=== PATIENT | male | born 1980 | race African-American/Black ===

== ENCOUNTER 2019-01-11 01:21 | Observation (INO) ==
[2019-01-11] MEDS ORDERED: Naloxone 0.4 MG/ML INJ IVP PRN (08:17)
[2019-01-11] MEDS ORDERED: Mag Hydrox/Al Hydrox/Simeth 30 ML UDC PO PRN (08:17)
[2019-01-11] MEDS ORDERED: Ondansetron ODT 4 MG TAB.RAPDIS SL PRN (08:17)
[2019-01-11] MEDS ORDERED: Acetaminophen 325 MG TABLET PO PRN (08:17)
[2019-01-11] MEDS ORDERED: MOM Conc 10 ML UD.LIQ PO PRN (08:17)
[2019-01-11] MEDS ORDERED: *HR* Heparin 5,000 UNIT/ML VIAL IVP PRN (08:21)
[2019-01-11] MEDS ORDERED: *HR* Buprenorphine HCl 8 MG TAB.SUBL SL SCH (09:00)
[2019-01-11] MEDS: Ringers Solution, Lactated 1,000 ML IVC SCH ×2 (09:08→14:14)
[2019-01-11 09:37] LABS: Hematocrit 51.6 % (37.5-50.1); Hemoglobin 17.9 g/dL (12.9-16.9); Mean Corpuscular HGB Conc 34.7 g/dL (31.6-35.5); Mean Corpuscular Hemoglobin 29.9 pg (28.0-33.3); Mean Corpuscular Volume 86.1 fL (83.0-100.0); Platelet Count 282 K/mcL (140-400); Red Blood Count 5.99 M/mcL (4.19-5.50); Red Cell Distribution Width 13.8 % (11.5-14.5); White Blood Count 17.8 K/mcL (4.3-11.1)
[2019-01-11 09:45] LABS: Prothrombin Time 11.3 Seconds (9.4-12.1)
[2019-01-11] MEDS: Heparin 25,000 UNIT/250 ML D5W 25,000 UNIT/250 ML IV.SOLN IVC SCH (10:01)
[2019-01-11] MEDS: *HR* Heparin 5,000 UNIT/ML VIAL IVP PRN (17:28)
[2019-01-11] MEDS ORDERED: Perflutren Lipid Microsphere 1.3 ML in 0.9 % Sodium Chloride 8.7 ML IVP ONE (18:00)
[2019-01-11] MEDS: *HR* Buprenorphine HCl 8 MG TAB.SUBL SL SCH (20:03)
[2019-01-12 01:44] LABS: Hematocrit 47.2 % (37.5-50.1); Mean Corpuscular HGB Conc 33.1 g/dL (31.6-35.5); Mean Corpuscular Hemoglobin 28.6 pg (28.0-33.3); Mean Corpuscular Volume 86.4 fL (83.0-100.0); Mean Platelet Volume 9.4 fL (9.4-12.4); Platelet Count 260 K/mcL (140-400); Red Blood Count 5.46 M/mcL (4.19-5.50); Red Cell Distribution Width 13.9 % (11.5-14.5); White Blood Count 16.1 K/mcL (4.3-11.1)
[2019-01-12 01:51] LABS: Hemoglobin 15.6 g/dL (12.9-16.9)
[2019-01-12 02:02] LABS: BUN/Creatinine Ratio 12 (6-26); Blood Urea Nitrogen 11 mg/dL (6-20); Calcium 9.1 mg/dL (8.6-10.3); Carbon Dioxide 29 mEq/L (23-29); Chloride 103 mEq/L (98-107); Glucose 102 mg/dL (70-105); Magnesium 1.9 mg/dL (1.6-2.6); Osmolality,Calculated 282 (280-300); Potassium 3.9 mEq/L (3.5-5.1); Sodium 136 mEq/L (136-145); eGFR For African Americans > 60 (> 60); eGFR For Non-African Americans > 60 (> 60)
[2019-01-12 02:03] LABS: Chol/HDL Ratio 3.6 (0-4.9)
[2019-01-12] MEDS: *HR* Buprenorphine HCl 8 MG TAB.SUBL SL SCH (07:53)
[2019-01-12] MEDS: *HR* Heparin 5,000 UNIT/ML VIAL IVP PRN (08:58)
[2019-01-12] MEDS ORDERED: Aspirin 81 MG TAB.CHEW PO SCH (09:00)
[2019-01-12 10:42] VITALS: BP 156/97
[2019-01-12] MEDS: Heparin 25,000 UNIT/250 ML D5W 25,000 UNIT/250 ML IV.SOLN IVC SCH (11:42)
[2019-01-13] MEDS ORDERED: Nicotine 21 MG PATCH.TD24 TD SCH (09:00)
== END 2019-01-12 12:22 | disposition left against medical advice (07) ==
LOC: ICNU → PREINTOOBSV 05:26 → SUATTDRO 06:32 → 2NNU 07:23
PROVIDERS: ADMIT Internal Medicine; ATTEND Internal Medicine